=== PATIENT | female | born 1960 | race Caucasian/White ===

== ENCOUNTER 2024-01-03 19:12 | Emergency (ER) | payer OTHER, SELFPAY ==
[2024-01-03 19:17] VITALS: BP 111/92
[2024-01-03] MEDS: TORADOL 30 MG IV (21:01)
[2024-01-03] MEDS: ZOFRAN 4 MG IV (21:02)
[2024-01-03] MEDS: DILAUDID 0.5 MG IV (21:03)
[2024-01-03 21:05] VITALS: BP 132/100
[2024-01-03 21:18] LABS: Urine Albumin Negative (Neg - Trace); Urine Bilirubin Negative (Negative); Urine Character Slightly Cloudy (Clear); Urine Color Straw; Urine Glucose Negative (Negative); Urine Ketone Negative (Negative); Urine Leukocyte Trace (Negative); Urine Nitrite Negative (Negative); Urine Occult Blood Negative (Negative); Urine Specific Gravity 1.015 (<1.030); Urine Urobilinogen Negative (Neg - 1+)
[2024-01-03 21:26] LABS: Urine Amorphous Seen
[2024-01-03 21:27] LABS: Urine Bacteria Moderate (Negative); Urine Red Blood Cell None Seen /HPF (0-2); Urine White Cell 0-2 /HPF (0-5)
[2024-01-03 22:10] VITALS: BP 163/73
--- NOTE | 2024-01-03 23:09 | ED.MUSCINJ ---
HPI-Injury
General
Chief Complaint: Musculo-Skeletal Complaint
Source: patient
Exam Limitations: none
Time Seen by Provider: 01/03/24 19:56
Nursing documentation reviewed up to this point in time: agreed with
Travel History
Have you had any contact with someone who has COVID-19?: No
Do you have any symptoms of coronavirus? Fever > 100 degrees, chills, cough, shortness of breath, sore throat, loss of taste or smell, muscle aches, or headache?: No
History of Present Illness-Injury
Is this injury a work related problem?: No
Is pt an associate of [facility]?: No
Initial Injury comments:
Patient to ED with 3 day history of low back pain. No history of trauma. Pain worsened tonight, radiates to left flank and groin. Brought to ED by spouse for eval. Denies fever/chills, n/v/d. No urinary symptoms. No weakness in extremities, no
saddle paresthesia.
Past History
Past History
ED Past Medical History: None and Other (Hypertension, GERD, gallstone pancreatitis status post cholecystectomy, �2)
ED Past Surgical History: None
Social History
Tobacco: Non-smoker
Alcohol: Occasional
Drug: None
Personal:
Living: with family
Employment: Employed
Family History
Family History: Other (Father with IN and arrhythmia. Mother with CABG)
Review of Systems
Review of Systems
Allergies reviewed?: Yes
All Other Systems: ROS reviewed and negative except as documented in HPI and ROS
Constitutional: Reports no symptoms
EENT: Reports no symptoms
Respiratory: Reports no symptoms
Cardiac: Reports no symptoms
ABD/GI: Reports no symptoms
: Reports no symptoms
Musculoskeletal: Reports back pain
Skin: Reports no symptoms
Neurological: Reports no symptoms
Psychiatric: Reports no symptoms
Musculoskeletal Injury Exam
Musculoskeletal Injury Exam
Left Lower Back:
Pain with Movement?: Moderate
Tender to palpation?: Moderate
Soft tissue swelling?: None
External deformity and angulation?: None
Joint effusion?: None
Contusion?: None
Hematoma-local bleeding into tissue?: None
Strain- Sprain- Tear (Connective tissue injury)?: Moderate
Crepitus with movement?: No
Joint instability?: No
Malalignment/deformity?: No
Range of motion: Limited
Distal skin color and temperature: normal-warm & good color
Capillary Refill: normal
Normal distal neurovascular exam?: Yes
Phy Exam
General Physical Exam
General Presentation: well appearing and moderate distress
General age: appears stated age
General Skin: warm and dry
General Habitus: normal
Musculoskeletal Exam
Musculoskeletal Exam: back pain (left low back pain) and neuro vasc intact
Skin Exam
Skin Exam: normal color, warm/dry and no rash
Psychiatric Exam
Psychiatric Exam: normal mood/affect
Injury Course
Orders/Labs/Results
Orders:
Orders
01/03/24 20:14
Ketorolac [Toradol] 30 mg IV NOW STA
01/03/24 20:34
Ondansetron Injectable [Zofran] 4 mg IV NOW STA
01/03/24 20:35
Ondansetron Injectable [Zofran] 4 mg .ROUTE .STK-MED ONE
01/03/24 20:56
HYDROmorphone [Dilaudid] 0.5 mg .ROUTE .STK-MED ONE
01/03/24 21:02
HYDROmorphone [Dilaudid] 0.5 mg IV NOW STA
01/03/24 21:10
Urinalysis Reflex To Culture Urgent
Date Specimen was Collected: 01/03/24
Time Specimen was Collected: 21:04
Urine Microscopic Reflex Cult Urgent
Urine Culture Urgent
ABRAHAN Source: U
Specimen Description:
Date Specimen was Collected: 01/03/24
Time Specimen was Collected: 21:04
01/03/24 21:30
CT Abd/pel Without Iv Or Oral Urgent
Comment:
Reason For Exam: Left flank pain
01/03/24 22:58
Hydrocodone 5/APAP 325 [Hendrum 5/325] 1 tablet PO NOW STA
Abnormal Lab Results
01/03/24
21:10
Leukocyte Esterase Rfl Trace A
(Negative)
Urine Bacteria (Reflex) Moderate A
(Negative)
*Radiology
Radiology exam reviewed: radiology read reviewed
*Pulse Oximetry
Patient hypoxic: no
*Critical Care Note
Total Time (30-74mins, 75-104mins- exclusive of procedures): Not Applicable
ED Attending Note
-
Portions of this chart may have been created with voice recognition software.� Occasional wrong word or��sound alike� substitutions may have occurred due to the inherent limitations of voice recognition software.
Discharge Plan
Departure
Patient Disposition: Home (Routine Discharge)
Date of Disposition: 01/03/24
Time of Disposition: 22:59
Patient with high blood pressure during this ER visit?: No
Condition: Good
Covid-19: Not Applicable
Discharge Problem:
Low back pain
Instructions: Ibuprofen, Using Cold for Pain, Back Pain
Prescriptions:
New
oxycodone 5 mg capsule
5 mg PO Q4H PRN (Reason: Pain) Qty: 12 0RF
cyclobenzaprine 10 mg tablet
10 mg PO HS PRN (Reason: muscle spasms) Qty: 7 0RF
No Action
lisinopril 10 MG tablet
10 mg PO DAILY Qty: 20 0RF
Referrals:
Claude Copeland MD [Family Provider] - Tomorrow
Interventions
Interventions:
*Risk Screen - Suicide Last Done: 01/03/24 19:17
*General Assessment Last Done: 01/03/24 19:17
*Neglect/Abuse Screening Last Done: 01/03/24 19:17
ED- Fall Risk Assessment Last Done: 01/03/24 21:05
*ED COVID-19 Vaccine History Last Done: 01/03/24 21:05
ED-Musculoskeletal Assessment Last Done: 01/03/24 21:05
Discharge Date and Time
Print Language: YI
[2024-01-03] MEDS: NORCO 5/325 1 TABLET PO (23:13)
[2024-01-03 23:15] VITALS: BP 147/79
[2024-01-03] MEDS: FLEXERIL 10 MG PO (23:19)
== END 2024-01-03 23:00 | disposition home or self-care (01) ==
LOC: EMR 19:12
PROVIDERS: Nurse Practitioner; EMERGENCY PHYSICIAN Emergency Medicine; FAMILY PHYSICIAN Family Medicine
DX: M54.50 Low back pain, unspecified (principal); R10.9 Unspecified abdominal pain; I10 Essential (primary) hypertension; K21.9 Gastro-esophageal reflux disease without esophagitis; F41.9 Anxiety disorder, unspecified; F32.A Depression, unspecified; G43.909 Migraine, unspecified, not intractable, without status migrainosus
CPT/HCPCS: 99284; 96374; 96375 ×2; 74176; 81003; 81015; 87086

== ENCOUNTER → 2024-01-12 09:58 | Outpatient (REF) | payer OTHER, SELFPAY | LOC: HWRAD 09:58 | PROVIDERS: ATTENDING PHYSICIAN Family Medicine | DX: R10.2 Pelvic and perineal pain (principal) | CPT/HCPCS: 76830; 76856 ==

== ENCOUNTER → 2024-05-11 14:07 | Outpatient (REF) | payer OTHER, SELFPAY | LOC: WDC 14:07 | PROVIDERS: ATTENDING PHYSICIAN Obstetrics & Gynecology Gynecology; FAMILY PHYSICIAN Family Medicine | DX: Z12.31 Encounter for screening mammogram for malignant neoplasm of breast (principal); R92.8 Other abnormal and inconclusive findings on diagnostic imaging of breast | CPT/HCPCS: 76642; 77063; 77067 ==

== ENCOUNTER → 2025-05-29 12:09 | Outpatient (REF) | payer OTHER, SELFPAY | LOC: WDC 12:09 | PROVIDERS: ATTENDING PHYSICIAN Obstetrics & Gynecology Gynecology; FAMILY PHYSICIAN Family Medicine | DX: Z12.31 Encounter for screening mammogram for malignant neoplasm of breast (principal); Z12.39 Encounter for other screening for malignant neoplasm of breast | CPT/HCPCS: 77063; 77067 ==

== ENCOUNTER → 2025-05-31 09:32 | Outpatient (REF) | payer OTHER, SELFPAY | LOC: RAD 09:32 | PROVIDERS: ATTENDING PHYSICIAN Obstetrics & Gynecology Gynecology; FAMILY PHYSICIAN Family Medicine | DX: Z78.0 Asymptomatic menopausal state (principal) | CPT/HCPCS: 77080 ==